=== PATIENT | male | born 2000 | race Caucasian/White ===

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

== ENCOUNTER 2023-11-11 22:00 | Emergency (ER) | payer SELFPAY ==
[2023-11-11 22:07] VITALS: BP 166/90; PULSE 69; RESP 14; TEMP 36.3; O2SAT 98
--- NOTE | 2023-11-11 22:11 | W.ED.GENAD ---
Discharge Plan Disposition Patient Disposition: Home Condition: Stable Discharge Details Clinical Impression: Strain of thoracic back region Primary Care Provider: Mak Ochoa ED Provider: Rancho Schreiber Home Meds and New Rx's Prescriptions: New ketorolac 10 mg tablet 10 mg PO QID 5 Days Qty: 20 0RF Rx Instructions: maximum total duration of 5 days from all oral, intranasal, or parenteral formulations methocarbamol 750 mg tablet 750 mg PO QID 10 Days Qty: 40 0RF No Action azithromycin 250 mg tablet See Rx Instructions .ROUTE .COMPLEX Qty: 6 0RF Rx Instructions: take 500 mg today (day 1), then 250 mg for 4 days (days 2-5) Cepacol Sore Throat (tristan-men) 15-2.6 mg lozenge 1 maureen MM Q2H PRN (Reason: sore throat) Qty: 16 0RF Discharge Instructions Instructions: Ketorolac (Systemic), Back Muscle Strain, Cyclobenzaprine, Methocarbamol Additional Instructions: You were seen in the emergency department for your muscle strain of your thoracic back region. Please take 1000 mg of Tylenol every 6 hours consistently, use the prescribed ketorolac to take [facility] between Tylenol doses also every 6 hours for the next 5 days, once out of this medication please take 400 mg of ibuprofen in its place. Apply an [id number] lidocaine patch to the area of pain each day for 12 hours. I have given you a sedating muscle relaxer called cyclobenzaprine tonight as well as at the [place] of 3 tablets of this, you can use this in the evenings, otherwise I have sent you a nonsedating muscle relaxer called methocarbamol to take as directed, if you choose to take cyclobenzaprine in the evening please do not take methocarbamol at the same time as an evening dose. Apply gentle heat to the area, gentle massage to the area. Warning signs of spinal pathology include urinary retention, loss of bowel underpants without noticing numbness to the genitalia-please return to the ER for any such symptoms. Stand Alone Forms: Physical Therapy Referral, Work Release Referrals: Mak Ochoa [Primary Care Provider] - Discharge Data Discharge Date/Time-TO BE ENTERED AT DEPARTURE: 11/11/23 22:57 HPI General Date/Time Provider Initiated Documentation: 11/11/23 22:11. HPI Narrative: 23 year-old male presents to ED today by POV/ambulating with his spouse with a chief complaint of mid-L back pain after lifting a box at home today. Quality described as sharp back pain that brought him to his knees, no radiation to numbness/tingling, numbness to genitals, urinary retention, bowel incontinence, radiating pain down the legs. Severity is described as severe. Palliating factors include nothing specific attempted. Provoking factors include nothing specific. Events leading up to the incident/Associated Symptoms: Patient denies history of similar back injuries with ADLs in history. Patient not anticoagulated. Related Data Home Medications ?Medication ?Instructions ?Recorded ?Confirmed azithromycin 250 mg tablet See Rx Instructions PO .COMPLEX #6 12/20/18 tabs benzocaine 15 mg-menthol 2.6 mg 1 maureen mucous membrane Q2H PRN sore 12/20/18 lozenges (Cepacol Sore Throat throat #16 ea (benzocaine-menthol)) ketorolac 10 mg tablet 10 mg PO QID 5 days #20 tabs 11/11/23 methocarbamol 750 mg tablet 750 mg PO QID 10 days #40 tabs 11/11/23 Previous Rx's ?Medication ?Instructions ?Recorded azithromycin 250 mg tablet See Rx Instructions PO .COMPLEX #6 12/20/18 tabs benzocaine 15 mg-menthol 2.6 mg 1 maureen mucous membrane Q2H PRN sore 12/20/18 lozenges (Cepacol Sore Throat throat #16 ea (benzocaine-menthol)) ketorolac 10 mg tablet 10 mg PO QID 5 days #20 tabs 11/11/23 methocarbamol 750 mg tablet 750 mg PO QID 10 days #40 tabs 11/11/23 Allergies Allergy/AdvReac Type Severity Reaction Status Date / Time Penicillins Allergy Mild Skin Rash Unverified 12/20/18 17:17 General Stated Complaint: Nk/Back Pain MOE: 4 Review of Systems All systems reviewed & are unremarkable except as noted in HPI and below Exam Narrative Exam Narrative: GENERAL APPEARANCE: Well-nourished, non-toxic, awake and alert, atraumatic, no acute distress. SKIN: Warm, pink, dry, intact, without rashes/lesions/ulcerations. HEAD: Normocephalic, atraumatic, normal hair distribution for gender/age. EYES: Normal conjunctiva, no exudates on lids/lashes. ENT: Nares patent, no circumoral cyanosis, no facial swelling NECK: Supple, trachea midline, painless cervical ROM. LUNGS/CHEST: Non-labored respirations, normal A/P diameter, symmetrical expansion, no chest wall deformity HEART (CV/PV): No peripheral edema, no JVD. ABDOMEN: Soft, non-distended, no guarding. MSK: Normal ROM, no swelling/deformity to bilateral UEs or LEs, moving all extremities without weakness, no cyanosis, spine midline without tenderness, normal curvature, left lower paraspinal thoracic back tenderness with palpable muscle tension, no midline vertebral tenderness/crepitus/step-offs, neurovascularly intact in the upper and lower extremities bilaterally and symmetrically with normal strength and sensation, no saddle anesthesia NEURO: Mental Status AAOx4 - alert to person, place, time, events No facial droop, no forehead involvement. Motor: No focal weakness - strength 5/5 in bilateral UEs and LEs, proximal and distal, symmetric. Sensory: sensation intact to light touch globally. Gait normal: patient ambulated without ataxia into ED room. PSYCH: euthymic, cooperative, pleasant, appropriate speech Course Vital Signs Vital signs: Vital Signs Temperature 36.3 C L 11/11/23 22:07 Pulse 69 11/11/23 22:07 Respiratory Rate 14 11/11/23 22:07 Blood Pressure 166/90 H 11/11/23 22:07 Pulse Oximetry 98 11/11/23 22:07 Temperature 36.3 C L 11/11/23 22:07 Temperature Source Tympanic 11/11/23 22:07 Pulse 69 11/11/23 22:07 Respiratory Rate 14 11/11/23 22:07 Blood Pressure 166/90 H 11/11/23 22:07 Blood Pressure Position Sitting 11/11/23 22:07 Pulse Oximetry 98 11/11/23 22:07 Oxygen Delivery Method Room Air 11/11/23 22:07 Oxygen Flow Rate 0 11/11/23 22:07 Pain Level 8 11/11/23 22:07 Medical Decision Making This dictation utilizes [id number] dictation software and may contain unedited grammatical errors. 23 year-old male presents to ED today by POV/ambulating with his spouse with a chief complaint of mid-L back pain after lifting a box at home today. Quality described as sharp back pain that brought him to his knees, no radiation to numbness/tingling, numbness to genitals, urinary retention, bowel incontinence, radiating pain down the legs. Severity is described as severe. Palliating factors include nothing specific attempted. Provoking factors include nothing specific. Events leading up to the incident/Associated Symptoms: Patient denies history of similar back injuries with ADLs in history. Patients' medical history: negative, otherwise healthy. Family and social history: noncontributory. Pertinent exam findings / vital signs include left lower paraspinal thoracic back tenderness with palpable muscle tension, no midline vertebral tenderness/crepitus/step-offs, neurovascularly intact in the upper and lower extremities bilaterally and symmetrically with normal strength and sensation, no saddle anesthesia. Differential / pathologies of concern include back strain/sprain, not trauma/fracture, not cauda equina. Diagnostic studies of: -none. Interventions of: -Rx for Toradol, Muscle relaxer. ED Course/Assessment/Plan: 23-year-old male presents with left lower thoracic back pain after lifting a box today, was not overtly heavy beyond his ability to lift, likely just possible minor disc herniation versus back strain or muscle spasm, I went over homeopathic remedies like gentle heat, massage to the area, provided PT referral and prescriptions for Toradol recommending therapeutic dosing of Tylenol, provided prescription for methocarbamol and some cyclobenzaprine for evening muscle relaxation to go pack, recommended [id number] lidocaine patch on the area for 12 hours each day, strict return criteria for urinary retention, bowel incontinence, numbness to genitalia. Findings not consistent with cauda equina, risk factors for spinal epidural abscess, traumatic vertebral fracture. Disposition of strain of thoracic back region. Patient verbalized understanding of the plan and return to ED criteria and engaged in shared decision making. Medical Records Medical records reviewed: Yes I reviewed the patient's medical records. Quality:SDOH Health Related Social Needs: No Data to Display PFSH All Active Problems (Updated 11/11/23 @ 22:29 by NOEL Santa) Strain of thoracic back region (Acute) Surgical History Tonsillectomy and adenoidectomy TUBES AND ADNOIDS OUT 2001 Social History Smoking/Tobacco Use Status: Never Smoking risk assessment performed?: Yes Alcohol Intake: never Drug use: Never Do you feel safe at home: Yes Do you feel safe in your relationship?: Yes
[2023-11-11] MEDS: Ketorolac 10 MG TAB PO (22:56)
[2023-11-11] MEDS: Cyclobenzaprine 10 MG TAB, 3 TABS/BTL PO (22:56)
[2023-11-11] MEDS: Cyclobenzaprine 10 MG TAB PO (22:56)
[2023-11-11] MEDS: Lidocaine 5% Patch 1 PATCH TP (22:56)
[2023-11-11] MEDS: Acetaminophen 500 MG TAB 1000 MG PO (22:56)
== END 2023-11-11 22:57 | disposition home or self-care (01) ==
LOC: ER 23:40
PROVIDERS: Emergency Provider Physician Assistant; PCP Internal Medicine
DX: S29.012A Strain of muscle and tendon of back wall of thorax, initial encounter (principal); X50.0XXA Overexertion from strenuous movement or load, initial encounter
CPT/HCPCS: 99283